=== PATIENT | female | born 1960 | race Caucasian/White ===

== ENCOUNTER 2024-03-05 04:34 | Emergency (ER) | payer OTHER ==
[~2024-03-05] VITALS: Ht 157.5 cm; Wt 65.0 kg
[2024-03-05 04:47] VITALS: PULSE 90; O2SAT 97
[2024-03-05 05:04] VITALS: BP 214/107; RESP 16; TEMP 98.3; O2SAT 98
== END 2024-03-05 08:32 | disposition left against medical advice (07) ==
LOC: ER 05:21
DX: R52 Pain, unspecified (principal); Z53.21 Procedure and treatment not carried out due to patient leaving prior to being seen by health care provider